=== PATIENT | female | born 1955 | race African-American/Black ===

== ENCOUNTER 2019-07-29 10:00 | Emergency (ER) | payer MEDICARE, MEDICAID ==
[~2019-07-29] VITALS: Ht 157.5 cm; Wt 60.0 kg
[2019-07-29 11:37] LABS: BASOPHILS % 1.2 % (0.0-2.0); EOSINOPHILS % 3.3 % (0.0-5.0); HEMATOCRIT. 21.9 % (36.0-48.0); HEMOGLOBIN. 7.2 g/dL (12.0-16.0); LYMPHOCYTES % 21.2 % (20.0-50.0); MEAN CORPUSCULAR VOLUME 100.3 fL (81.0-99.0); MONOCYTES % 7.4 % (2.0-8.0); NEUTROPHILS % 66.9 % (40.0-76.0); PLATELET 207 x1000/uL (130-400); RED BLOOD CELL COUNT 2.19 mill/uL (4.2-5.4); RED CELL DISTRIBUTION WIDTH 14.9 % (11.6-14.6)
[2019-07-29 11:42] LABS: CHLORIDE 107 mEq/L (98-107)
[2019-07-29 11:56] LABS: INR 0.9; PROTHROMBIN TIME 9.5 sec (9.6-11.0)
[2019-07-29 13:21] VITALS: BP 127/69
== END 2019-07-29 13:24 | disposition home or self-care (01) ==
LOC: ER 10:00
DX: D53.9 Nutritional anemia, unspecified (principal); N28.9 Disorder of kidney and ureter, unspecified; E80.6 Other disorders of bilirubin metabolism; I48.91 Unspecified atrial fibrillation; I50.9 Heart failure, unspecified; Z98.890 Other specified postprocedural states
CPT/HCPCS: 36415; 80053; 85025; 86850; 86900; 99284